=== PATIENT | male | born 1935 | race Caucasian/White ===

== ENCOUNTER 2019-03-11 07:44 | Observation (INO) | payer MEDICARE, BC ==
[2019-03-11] MEDS ORDERED: Aspirin 81 MG Tab.Chew PO ONE (07:57)
[2019-03-11 08:14] LABS: CHLORIDE,CL 104 mEq/L (98-106); SODIUM,NA 142 mEq/L (136-145)
--- NOTE | 2019-03-11 08:45 | EDM.PDOC ---
ED HPI GENERAL MEDICAL PROBLEM - General Chief Complaint: General Stated Complaint: dizzy Time Seen by Provider: 03/11/19 08:17 Source of Information: Reports: Patient History Limitations: Reports: No Limitations - History of Present Illness INITIAL COMMENTS - FREE TEXT/NARRATIVE: Deshaun is a pleasant 83 year old male who presents to the ED via wheelchair with his son with c/o difficulty walking, dizziness, and sweatiness. He reports that last night around 0230 he woke up and was dizzy and had a hard time walking. He reports he was also clammy at this time. Reports he then went back to sleep and woke up again around 0630 [address] was feeling the same way. He reports normally he has no trouble with ambulation. Does report since this time he has had a bilateral frontal headache, rated 5/10. He reports he has not had any chest pain or shortness of breath. Denies any recent illness. Denies any fever, chills, decreased appetite, cough, abdominal pain, urinary symptoms, N/V/D. He reports when he went to sleep last night he was feeling well. Onset: Today Onset Date: 03/11/19 Onset Time: 02:30 Duration: Intermittent Location: Reports: Head Quality: Reports: Ache Severity: Moderate Improves with: Reports: None Worsens with: Reports: None Associated Symptoms: Reports: Diaphoresis, Headaches, Weakness. Denies: Confusion, Chest Pain, Cough, cough w sputum, Fever/Chills, Loss of Appetite, Malaise, Nausea/Vomiting, Rash, Seizure, Shortness of Breath, Syncope Headache Pain Score (Numeric/FACES): 2 - Related Data Allergies Allergy/AdvReac Type Severity Reaction Status Date / Time acetaminophen Allergy Cannot Verified 03/11/19 07:46 [From Tylenol-Codeine #3] Remember amoxicillin [Amoxicillin] Allergy Stomach Verified 03/11/19 07:46 Upset cefuroxime axetil Allergy Joint Pain Verified 03/11/19 07:46 [From Ceftin] codeine phosphate Allergy Cannot Verified 03/11/19 07:46 [From Tylenol-Codeine #3] Remember levofloxacin [From Levaquin] Allergy Stomach Verified 03/11/19 07:46 Upset Home Meds: Home Meds Aspirin [Halfprin] 81 mg PO DAILY 12/09/13 [History] Atenolol/Chlorthalidone [Atenolol-Chlorthalidone 50-25] 0.5 tab PO DAILY [History] Calcium Carbonate [Calcium] 1,200 mg PO DAILY 12/09/13 [History] Cholecalciferol (Vitamin D3) [Vitamin D-3] 2,000 unit PO DAILY 12/09/13 [History ] Simvastatin [Zocor] 20 mg PO DAILY 12/09/13 [History] Ubidecarenone [Co Q-10] 100 mg PO DAILY 12/09/13 [History] Cyanocobalamin (Vitamin B-12) [Vitamin B-12] 250 mcg PO DAILY 03/11/19 [History] Pantoprazole Sodium 40 mg PO DAILY 03/11/19 [History] Potassium Chloride 10 meq PO DAILY 03/11/19 [History] amLODIPine Besylate [Amlodipine Besylate] 5 mg PO DAILY 03/11/19 [History] Past Medical History HEENT History: Reports: Cataract Cardiovascular History: Reports: Hypertension Oncologic (Cancer) History: Reports: Prostate - Past Surgical History HEENT Surgical History: Reports: Cataract Surgery Social & Family History - Family History Family Medical History: Noncontributory - Tobacco Use Smoking Status *Q: Never Smoker - Caffeine Use Caffeine Use: Reports: Soda - Recreational Drug Use Recreational Drug Use: No ED ROS GENERAL - Review of Systems Review Of Systems: ROS reveals no pertinent complaints other than HPI. ED EXAM, GENERAL - Physical Exam Exam: See Below Exam Limited By: No Limitations General Appearance: Alert, WD/WN, No Apparent Distress Eye Exam: Bilateral Eye: EOMI, Normal Fundi, Normal Inspection, PERRL Ears: Normal External Exam, Normal Canal, Hearing Grossly Normal, Normal TMs Nose: Normal Inspection, Normal Mucosa, No Blood Throat/Mouth: Normal Inspection, Normal Lips, Normal Teeth, Normal Gums, Normal Oropharynx, Normal Voice, No Airway Compromise Head: Atraumatic, Normocephalic Neck: Normal Inspection, Supple, Non-Tender, Full Range of Motion Respiratory/Chest: No Respiratory Distress, Lungs Clear, Normal Breath Sounds, No Accessory Muscle Use, Chest Non-Tender Cardiovascular: Normal Peripheral Pulses, Regular Rate, Rhythm, No Edema, No Murmur, Extra Beats (ocassional PVC) GI/Abdominal: Normal Bowel Sounds, Soft, Non-Tender, No Organomegaly, No Distention, No Abnormal Bruit, No Mass Back Exam: Normal Inspection, Full Range of Motion, NT Extremities: Normal Inspection, Normal Range of Motion, Non-Tender, Normal Capillary Refill, No Pedal Edema Neurological: Alert, Oriented, CN II-XII Intact, Normal Cognition, Normal Gait, Normal Reflexes, No Motor/Sensory Deficits Psychiatric: Normal Affect, Normal Mood Skin Exam: Warm, Dry, Intact, Normal Color, No Rash Lymphatic: No Adenopathy Course - Vital Signs Last Recorded V/S: Last Vital Signs Temp 99.3 F 03/11/19 10:43 Pulse 71 03/11/19 10:43 Resp 16 03/11/19 10:43 BP 139/72 03/11/19 10:43 Pulse Ox 98 03/11/19 10:43 - Orders/Labs/Meds Orders: Active Orders 24 hr Category Date Time Status Chest 2V [CR] Stat Exams 03/11/19 07:48 Taken Head wo Cont [CT] Stat Exams 03/11/19 08:24 Taken Medication Orders Aspirin (Halfprin) 81 mg PO DAILY [facility] Last Admin: 03/11/19 10:53 Dose: Enoxaparin Sodium (Lovenox) 40 mg SUBCUT Q24H [facility] Last Admin: 03/11/19 11:59 Dose: 40 mg Potassium Chloride/Sodium Chloride (Normal Saline With 20 Meq Kcl) 1,000 mls @ 100 mls/hr IV ASDIRECTED [facility] Stop: 03/11/19 20:10 Last Admin: 03/11/19 10:40 Dose: 100 mls/hr Own[facility] Amlodipine Besylate 5 Mg 5 mg PO BEDTIME [facility] Atenolol- Chlorthalidone 50-25 Mg Tab 0.5 tab PO BEDTIME [facility] Calcium Carbonate 1,200 Mg Tab 1,200 mg PO BEDTIME [facility] Ubidecarenone [Co Q- 10] 100 Mg Cap 100 mg PO BEDTIME [facility] Pantoprazole Sodium (Protonix) 40 mg PO BEDTIME [facility] Potassium Chloride (Klor-Con 10) 40 meq PO BIDMEALS [facility] Simvastatin (Zocor) 20 mg PO BEDTIME [facility] Labs: Laboratory Tests 03/11/19 03/11/19 03/11/19 Range/Units 07:47 07:47 07:47 WBC 6.8 (5.0-10.0) 10^3/uL RBC 5.38 (4.50-6.00) 10^6/uL Hgb 16.4 (14.0-18.0) g/dL Hct 46.6 (40.0-54.0) % MCV 86.6 (82.0-94.0) fL MCH 30.5 (27.0-32.0) pg MCHC 35.2 (33.0-38.0) g/dL RDW Coeff of Sabino 13.3 (11.0-15.0) % Plt Count 194 (150-400) 10^3/uL Neut % (Auto) 49.1 (35-85) % Lymph % (Auto) 32.5 (10-55) % [place] % (Auto) 12.1 (0-16) % Eos % (Auto) 5.3 H (0-5) % Baso % (Auto) 1.0 (0-3) % Neut # (Auto) 3.32 (1.80-7.00) 10^3/uL Lymph # (Auto) 2.20 (1.00-4.80) 10^3/uL [place] # (Auto) 0.82 H (0.00-0.80) 10^3/uL Eos # (Auto) 0.36 (0.00-0.45) 10^3/uL Baso # (Auto) 0.07 10^3/uL PT 10.5 (9.7-12.3) SEC INR 1.02 (0.92-1.18) APTT 24.3 (23.2-32.3) SEC Sodium 142 (136-145) mEq/L Potassium 3.2 L (3.5-5.0) mEq/L Chloride 104 (98-106) mEq/L Carbon Dioxide 30 (21-32) mmol/L BUN 13 (7-18) mg/dL Creatinine 1.0 (0.7-1.3) mg/dL Est Cr Clr Drug Dosing 50.51 mL/min Estimated GFR (MDRD) > 60 (>=60) mL/min Glucose 106 H (75-99) mg/dL Calcium 9.1 (8.4-10.1) mg/dL Lactate Dehydrogenase 109 (100-190) U/L Creatine Kinase 110 (35-232) U/L Troponin I < 0.017 (0.00-0.06) ng/mL Meds: Medications Generic Name Dose Route Start Last Admin Trade Name Adriana PRN Reason Stop Dose Admin Aspirin 81 mg 03/11/19 10:15 03/11/19 10:53 Halfprin PO Not Given DAILY [facility] Enoxaparin Sodium 40 mg 03/11/19 12:00 03/11/19 11:59 Lovenox SUBCUT 40 mg Q24H [facility] Administration Potassium Chloride/Sodium Chloride 1,000 mls @ 100 mls/hr 03/11/19 10:11 10:40 Normal Saline With 20 Meq Kcl IV 03/11/19 20:10 100 mls/hr ASDIRECTED [facility] Administration Ownmed 5 mg 03/11/19 20:00 Amlodipine Besylate PO 5 Mg BEDTIME [facility] Atenolol- 0.5 tab 03/11/19 20:00 Chlorthalidone 50-25 PO Mg Tab BEDTIME [facility] Calcium 1,200 mg 03/11/19 20:00 Carbonate 1,200 Mg PO Tab BEDTIME [facility] Ownmed 100 mg 03/11/19 20:00 Ubidecarenone [Co Q- PO 10] 100 Mg Cap BEDTIME [facility] Pantoprazole Sodium 40 mg 03/11/19 20:00 Protonix PO BEDTIME [facility] Potassium Chloride 40 meq 03/11/19 17:30 Klor-Con 10 PO BIDMEALS [facility] Simvastatin 20 mg 03/11/19 20:00 Zocor PO BEDTIME [facility] Discontinued Medications Generic Name Dose Route Start Last Admin Trade Name Adriana PRN Reason Stop Dose Admin Aspirin 324 mg 03/11/19 07:57 03/11/19 07:57 Aspirin PO 03/11/19 07:58 324 mg ONETIME ONE Administration Potassium Chloride 40 meq 03/11/19 08:47 03/11/19 09:13 Klor-Con 10 PO 03/11/19 08:48 40 meq ONETIME ONE Administration - Re-Assessments/Exams Free Text/Narrative Re-Assessment/Exam: Discussed lab, EKG, CXR, and CT results with patient and son. Labs indicate hypokalemia with K of 3.2, but otherwise stable. EKG shows SR with frequent PVCs. Telemetry shows frequent PVCs as well. Discussed that low potassium could potentially worsen these. Patient is on low dose atenolol currently. 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 Chest xray negative for acute findings. Recommend overnight observation stay for telemetry. Will replace potassium. Recheck labs tomorrow morning. Departure - Departure Time of Disposition: 09:37 Disposition: Refer to Observation Condition: Good Clinical Impression: Hypokalemia, Frequent PVCs, Weakness - Discharge Information *PRESCRIPTION DRUG MONITORING PROGRAM REVIEWED*: Not Applicable *COPY OF PRESCRIPTION DRUG MONITORING REPORT IN PATIENT JEROD: Not Applicable - Problem List & Annotations (1) Frequent PVCs SNOMED Code(s): 61322216 Code(s): I49.3 - VENTRICULAR PREMATURE DEPOLARIZATION Status: Acute Current Visit: Yes (2) Hypokalemia SNOMED Code(s): 41869214 Code(s): E87.6 - HYPOKALEMIA Status: Acute Current Visit: Yes (3) Weakness SNOMED Code(s): 81706084 Code(s): R53.1 - WEAKNESS Status: Acute Current Visit: Yes - Problem List Review Problem List Initiated/Reviewed/Updated: Yes - My Orders Last 24 Hours: My Active Orders 03/11/19 07:48 Chest 2V [CR] Stat 03/11/19 08:24 Head wo Cont [CT] Stat - Assessment/Plan Admission H&P: Please use this note as an admission H&P Last 24 Hours: My Active Orders 03/11/19 07:48 Chest 2V [CR] Stat 03/11/19 08:24 Head wo Cont [CT] Stat Assessment:: Hypokalemia Frequent PVCs Weakness Plan: Patient will be admitted to observation with continuous telemetry. Will replace potassium. Recheck labs tomorrow morning. Referral to PT for strengthening
[2019-03-11] MEDS ORDERED: Potassium Chloride 10 MEQ Tab.ER PO ONE (08:47)
[2019-03-11] MEDS: NS + KCl 20mEq/L 1,000 ML IV SCH ×2 (10:40→19:36)
[2019-03-11] MEDS: Aspirin 81 MG Tab.EC PO SCH (10:53)
[2019-03-11] MEDS: Enoxaparin 40 MG/0.4 ML Syringe SUBCUT SCH (11:59)
[2019-03-11] MEDS ORDERED: POTASSIUM CHLORIDE 10 MEQ PO SCH (17:30)
[2019-03-11] MEDS: POTASSIUM CHLORIDE 10 MEQ PO SCH (19:37)
[2019-03-11] MEDS ORDERED: NS + KCl 20mEq/L 1,000 ML IV ONE (19:56)
[2019-03-11] MEDS ORDERED: UBIDECARENONE 100 MG PO SCH (20:00)
[2019-03-11] MEDS ORDERED: AMLODIPINE BESYLATE 5 MG PO SCH (20:00)
[2019-03-11] MEDS ORDERED: Calcium Carbonate 500 MG Tab.Chew PO SCH (20:00)
[2019-03-11] MEDS ORDERED: ATENOLOL PO SCH (20:00)
[2019-03-11] MEDS ORDERED: CHLORTHALIDONE PO SCH (20:00)
[2019-03-11] MEDS ORDERED: SIMVASTATIN 20 MG PO SCH (20:00)
[2019-03-12 07:18] LABS: CHLORIDE,CL 108 mEq/L (98-106); SODIUM,NA 143 mEq/L (136-145)
[2019-03-12] MEDS: Aspirin 81 MG Tab.EC PO SCH (07:42)
[2019-03-12] MEDS: POTASSIUM CHLORIDE 10 MEQ PO SCH (07:42)
[2019-03-12] MEDS ORDERED: Pantoprazole 40 MG Tab.CR PO SCH (08:00)
[2019-03-12 09:27] VITALS: BP 142/70; PULSE 63
--- NOTE | 2019-03-12 11:05 | PCM.DCSUM1 ---
Discharge Summary - Hospital Course Free Text/Narrative:: in with sinus congestion and dizziness yesterday, found to have a low K+, was given IVF and K+ replacement, feels much better, no dizziness now, still c/o some sinus congestion Diagnosis: Stroke: No Modified Gray Scale: No Symptoms at All Modified Gray Scale Score: 0 - Discharge Data Discharge Date: 03/12/19 Discharge Disposition: Home, Self-Care 01 Condition: Stable - Referral to Home Health Primary Care Physician: Mando Renteria MD - Discharge Diagnosis/Problem(s) (1) Hypokalemia SNOMED Code(s): 77189966 ICD Code: E87.6 - HYPOKALEMIA Status: Acute Priority: Low Current Visit : Yes - Patient Summary/Data Consults: Consultations 03/11/19 10:11 PT Evaluation and Treatment [CONS] Routine Recommended Follow-up Testing/Procedures: follow up with PCP this week, call thursday for an appointment time Hospital Course: was given IVF and K+ replacement, feels much better, still has sinus congestin and pressure which I suspect contributed to his dizziness, will dx home with prednisone 50mg 1 x a day for 5 days - Patient Instructions Diet: Heart Healthy Diet Driving: May Drive Today Showering/Bathing: May Shower Notify Provider of: Fever, Nausea and/or Vomiting Other/Special Instructions: rest. increase fluids. follow up with your family doctor this week, call thursday for an appointment time. return to the ED sooner if worse or problems. prednisone 50mg 1 x a day for 5 days - Discharge Plan *PRESCRIPTION DRUG MONITORING PROGRAM REVIEWED*: Not Applicable *COPY OF PRESCRIPTION DRUG MONITORING REPORT IN PATIENT JEROD: Not Applicable Home Medications: Home Meds Aspirin [Halfprin] 81 mg PO DAILY 12/09/13 [History] Atenolol/Chlorthalidone [Atenolol-Chlorthalidone 50-25] 0.5 tab PO DAILY [History] Calcium Carbonate [Calcium] 1,200 mg PO DAILY 12/09/13 [History] Cholecalciferol (Vitamin D3) [Vitamin D3] 2,000 unit PO DAILY 12/09/13 [History] Simvastatin [Zocor] 20 mg PO DAILY 12/09/13 [History] Ubidecarenone [Co Q-10] 100 mg PO DAILY 06/13/14 [History] Cyanocobalamin (Vitamin B-12) [Vitamin B-12] 250 mcg PO DAILY 03/11/19 [History] Potassium Chloride 10 meq PO DAILY 03/11/19 [History] amLODIPine Besylate [Amlodipine Besylate] 5 mg PO DAILY 03/11/19 [History] Oxygen Therapy Mode: Room Air Forms: ED Department Discharge Referrals: Mando Renteria MD [Primary Care Provider] - - Discharge Summary/Plan Comment DC Time >30 min.: No Discharge Summary/Plan Comment: see DC instructions prednisone 50mg 1 x a day for 5 days - Patient Data Vitals - Most Recent: Last Vital Signs Temp 37.7 C 03/12/19 08:00 Pulse 63 03/12/19 08:00 Resp 18 03/12/19 08:00 BP 142/70 H 03/12/19 08:00 Pulse Ox 97 03/12/19 08:00 Weight - Most Recent: 78.245 kg I&O - Last 24 hours: Intake & Output 03/11/19 03/12/19 03/12/19 22:59 06:59 14:59 Intake Total 893 Balance 893 Lab Results - Last 24 hrs: Laboratory Results - last 24 hr 03/12/19 03/12/19 Range/Units 06:50 06:50 WBC 6.5 (5.0-10.0) 10^3/uL RBC 4.90 (4.50-6.00) 10^6/uL Hgb 15.0 (14.0-18.0) g/dL Hct 43.4 (40.0-54.0) % MCV 88.6 (82.0-94.0) fL MCH 30.6 (27.0-32.0) pg MCHC 34.6 (33.0-38.0) g/dL RDW Coeff of Sabino 13.5 (11.0-15.0) % Plt Count 181 (150-400) 10^3/uL Neut % (Auto) 53.2 (35-85) % Lymph % (Auto) 27.6 (10-55) % [place] % (Auto) 14.1 (0-16) % Eos % (Auto) 4.2 (0-5) % Baso % (Auto) 0.9 (0-3) % Neut # (Auto) 3.44 (1.80-7.00) 10^3/uL Lymph # (Auto) 1.78 (1.00-4.80) 10^3/uL [place] # (Auto) 0.91 H (0.00-0.80) 10^3/uL Eos # (Auto) 0.27 (0.00-0.45) 10^3/uL Baso # (Auto) 0.06 10^3/uL Sodium 143 (136-145) mEq/L Potassium 3.8 (3.5-5.0) mEq/L Chloride 108 H (98-106) mEq/L Carbon Dioxide 29 (21-32) mmol/L BUN 12 (7-18) mg/dL Creatinine 1.0 (0.7-1.3) mg/dL Est Cr Clr Drug Dosing 50.51 mL/min Estimated GFR (MDRD) > 60 (>=60) mL/min Glucose 89 (75-99) mg/dL Calcium 8.9 (8.4-10.1) mg/dL Med Orders - Current: Current Medications Aspirin (Halfprin) 81 mg PO DAILY [facility] Last Admin: 03/12/19 07:42 Dose: 81 mg Calcium Carbonate/Glycine (Tums) 1,000 mg PO BEDTIME [facility] Last Admin: 03/11/19 19:42 Dose: 1,000 mg Enoxaparin Sodium (Lovenox) 40 mg SUBCUT Q24H [facility] Last Admin: 03/11/19 11:59 Dose: 40 mg Own[facility] Amlodipine Besylate 5 Mg 5 mg PO BEDTIME [facility] Last Admin: 03/11/19 19:36 Dose: 5 mg Ownmed Atenolol- Chlorthalidone 50-25 Mg Tab 0.5 tab PO BEDTIME [facility] Last Admin: 03/11/19 19:38 Dose: 0.5 tab [facility] Ubidecarenone [Co Q- 10] 100 Mg Cap 100 mg PO BEDTIME [facility] Last Admin: 03/11/19 19:38 Dose: 100 mg Pantoprazole Sodium (Protonix) 40 mg PO DAILY [facility] Last Admin: 03/12/19 07:46 Dose: 40 mg Potassium Chloride (Klor-Con 10) 10 meq PO BID [facility] Last Admin: 03/12/19 07:42 Dose: 10 meq Simvastatin (Zocor) 20 mg PO BEDTIME [facility] Last Admin: 03/11/19 19:37 Dose: 20 mg Discontinued Medications Aspirin (Aspirin) 324 mg PO ONETIME ONE Stop: 03/11/19 07:58 Last Admin: 03/11/19 07:57 Dose: 324 mg Potassium Chloride/Sodium Chloride (Normal Saline With 20 Meq Kcl) 1,000 mls @ 100 mls/hr IV ASDIRECTED [facility] Stop: 03/11/19 20:10 Last Admin: 03/11/19 19:36 Dose: 100 mls/hr Potassium Chloride/Sodium Chloride (Normal Saline With 20 Meq Kcl) 1,000 mls @ 80 mls/hr IV ONETIME ONE Stop: 03/12/19 08:25 Last Admin: 03/11/19 20:05 Dose: 80 mls/hr Potassium Chloride (Klor-Con 10) 40 meq PO ONETIME ONE Stop: 03/11/19 08:48 Last Admin: 03/11/19 09:13 Dose: 40 meq Potassium Chloride (Klor-Con 10) 40 meq PO BIDWAALS [facility]
[2019-03-12] MEDS: Enoxaparin 40 MG/0.4 ML Syringe SUBCUT SCH (11:43)
== END 2019-03-12 11:08 | disposition home or self-care (01) ==
LOC: CC.ED 07:44 → UNDOADMOB 09:49 → CC.MS 09:49
PROVIDERS: ADMIT Nurse Practitioner Family; ATTEND Family Medicine
DX: E87.6 Hypokalemia (principal); I49.3 Ventricular premature depolarization; I10 Essential (primary) hypertension; Z88.0 Allergy status to penicillin; Z88.1 Allergy status to other antibiotic agents; Z88.5 Allergy status to narcotic agent; Z79.82 Long term (current) use of aspirin; Z79.899 Other long term (current) drug therapy
CPT/HCPCS: 36415; 70450; 71046; 80048; 81001; 82550; 83615; 84484; 85025; 85610; 85730; 93005; 97161; 99285; A9270; J1650; J3480; 96365; 96366; 96372; 96376; G0378

== ENCOUNTER 2019-03-17 01:53 | Emergency (ER) | payer MEDICARE, BC ==
[2019-03-17 02:02] VITALS: PULSE 63
[2019-03-17 02:19] VITALS: BP 153/82
--- NOTE | 2019-03-17 02:50 | EDM.PDOC ---
ED HPI GENERAL MEDICAL PROBLEM - General Chief Complaint: General Stated Complaint: headache and no balance Time Seen by Provider: 03/17/19 02:29 Source of Information: Reports: Patient History Limitations: Reports: No Limitations - History of Present Illness INITIAL COMMENTS - FREE TEXT/NARRATIVE: Patient presents to ER with balance issues and a headache. States the same thing happened last week x2 and was also seen in the ER. Potassium was mildly low, had frequent PVCs noted on monitor. Was admitted for observation and discharged home the next day. He again complains of a frontal headache. [place] his balance was off at home when he awoke to go to the bathroom just like it was last week. Had a CT scan at that visit which was normal. He denies feeling lightheaded, just felt unsteady. No chest pain. Does get mildly short of breath. No nausea, vomiting. No diarrhea. Denies urinary complaints. Review of the chart shows potassium on presentation last week was 3.2. Was given replacement and by the next day, was normal at 3.8. Has been taking prednisone daily for sinus congestion, has last dose tomorrow. Was due to have his potassium checked today but was worried due to the balance concern. Nurse reports that when getting him up to the bathroom, ambulating went well. States he felt unsteady. Onset: Today, Sudden Duration: Minutes:, Improving Location: Reports: Head Quality: Reports: Dull Severity: Mild Improves with: Reports: Rest Worsens with: Reports: Movement Associated Symptoms: Reports: Shortness of Breath. Denies: Confusion, Chest Pain, Cough, Fever/Chills, Nausea/Vomiting, Syncope, Weakness Headache Pain Score (Numeric/FACES): 6 - Related Data Allergies Allergy/AdvReac Type Severity Reaction Status Date / Time acetaminophen Allergy Cannot Verified 03/17/19 02:02 [From Tylenol-Codeine #3] Remember amoxicillin [Amoxicillin] Allergy Stomach Verified 03/17/19 02:02 Upset cefuroxime axetil Allergy Joint Pain Verified 03/17/19 02:02 [From Ceftin] codeine phosphate Allergy Cannot Verified 03/17/19 02:02 [From Tylenol-Codeine #3] Remember levofloxacin [From Levaquin] Allergy Stomach Verified 03/17/19 02:02 Upset Home Meds: Home Meds Aspirin [Halfprin] 81 mg PO DAILY 12/09/13 [History] Atenolol/Chlorthalidone [Atenolol-Chlorthalidone 50-25] 0.5 tab PO DAILY [History] Calcium Carbonate [Calcium] 1,200 mg PO DAILY 12/09/13 [History] Cholecalciferol (Vitamin D3) [Vitamin D3] 2,000 unit PO DAILY 12/09/13 [History] Simvastatin [Zocor] 20 mg PO DAILY 12/09/13 [History] Ubidecarenone [Co Q-10] 100 mg PO DAILY 12/09/13 [History] Cyanocobalamin (Vitamin B-12) [Vitamin B-12] 250 mcg PO DAILY 03/11/19 [History] Potassium Chloride 10 meq PO DAILY 03/11/19 [History] amLODIPine Besylate [Amlodipine Besylate] 5 mg PO DAILY 03/11/19 [History] Past Medical History HEENT History: Reports: Cataract Cardiovascular History: Reports: Hypertension Oncologic (Cancer) History: Reports: Prostate - Past Surgical History HEENT Surgical History: Reports: Cataract Surgery Social & Family History - Family History Family Medical History: Noncontributory - Tobacco Use Smoking Status *Q: Never Smoker - Caffeine Use Caffeine Use: Reports: Soda ED ROS GENERAL - Review of Systems Review Of Systems: See Below Constitutional: Reports: Weakness. Denies: Fever, Chills, Malaise, Decreased Appetite HEENT: Reports: Sinus Problem. Denies: Ear Pain Respiratory: Reports: Shortness of Breath Cardiovascular: Denies: Chest Pain, Edema, Lightheadedness Endocrine: Denies: Fatigue GI/Abdominal: Denies: Abdominal Pain, Constipation, Diarrhea, Nausea, Vomiting : Reports: No Symptoms Musculoskeletal: Reports: No Symptoms Skin: Reports: No Symptoms Neurological: Reports: Dizziness, Headache, Weakness ED EXAM, GENERAL - Physical Exam Exam: See Below Exam Limited By: No Limitations General Appearance: Alert, WD/WN, No Apparent Distress Eye Exam: Bilateral Eye: EOMI, PERRL Ears: Normal External Exam, Normal TMs Nose: Normal Inspection, Normal Mucosa, No Blood Throat/Mouth: Normal Inspection, Normal Oropharynx Head: Normocephalic Neck: Normal Inspection, Supple, Non-Tender Respiratory/Chest: No Respiratory Distress, Lungs Clear, Normal Breath Sounds Cardiovascular: Regular Rate, Rhythm, No Edema GI/Abdominal: Normal Bowel Sounds, Soft, Non-Tender Extremities: Normal Inspection, No Pedal Edema Neurological: Alert, Oriented Skin Exam: Warm, Dry Course - Vital Signs Last Recorded V/S: Last Vital Signs Temp 98.2 F 03/17/19 01:59 Pulse 63 03/17/19 02:18 Resp 20 03/17/19 01:59 BP 153/82 H 03/17/19 02:18 Pulse Ox 96 03/17/19 02:10 - Orders/Labs/Meds Labs: Laboratory Tests 03/17/19 03/17/19 03/17/19 Range/Units 02:14 02:14 02:16 WBC 12.1 H (5.0-10.0) 10^3/uL RBC 5.50 (4.50-6.00) 10^6/uL Hgb 16.9 (14.0-18.0) g/dL Hct 46.8 (40.0-54.0) % MCV 85.1 (82.0-94.0) fL MCH 30.7 (27.0-32.0) pg MCHC 36.1 (33.0-38.0) g/dL RDW Coeff of Sabino 12.8 (11.0-15.0) % Plt Count 233 (150-400) 10^3/uL Neut % (Auto) 71.0 (35-85) % Lymph % (Auto) 16.6 (10-55) % [place] % (Auto) 12.3 (0-16) % Eos % (Auto) 0 (0-5) % Baso % (Auto) 0.1 (0-3) % Neut # (Auto) 8.59 H (1.80-7.00) 10^3/uL Lymph # (Auto) 2.00 (1.00-4.80) 10^3/uL [place] # (Auto) 1.48 H (0.00-0.80) 10^3/uL Eos # (Auto) 0.00 (0.00-0.45) 10^3/uL Baso # (Auto) 0.01 10^3/uL Sodium 140 (136-145) mEq/L Potassium 3.5 (3.5-5.0) mEq/L Chloride 101 (98-106) mEq/L Carbon Dioxide 29 (21-32) mmol/L BUN 18 (7-18) mg/dL Creatinine 1.0 (0.7-1.3) mg/dL Est Cr Clr Drug Dosing 54.15 mL/min Estimated GFR (MDRD) > 60 (>=60) mL/min Glucose 108 H (75-99) mg/dL Calcium 9.3 (8.4-10.1) mg/dL Magnesium 2.0 (1.8-2.4) mg/dL Total Bilirubin 0.7 (0.0-1.0) mg/dL AST 19 (15-37) U/L ALT 23 (12-78) U/L Alkaline Phosphatase 79 (46-116) U/L Troponin I < 0.017 (0.00-0.06) ng/mL Total Protein 6.7 (6.4-8.2) g/dL Albumin 3.6 (3.4-5.0) g/dL Urine Color Yellow (YELLOW) Urine Appearance Clear (CLEAR) Urine pH 5.5 (4.5-8.0) Ur Specific [place] 1.020 (1.003-1.020) Urine Protein Negative (NEGATIVE) mg/dL Urine Glucose (UA) Negative (NEGATIVE) mg/dL Urine Ketones Negative (NEGATIVE) mg/dL Urine Occult Blood Trace-intact H (NEGATIVE) Urine Nitrite Negative (NEGATIVE) Urine Bilirubin Negative (NEGATIVE) Urine Urobilinogen 0.2 (0.2-1.0) EU/dL Ur Leukocyte Esterase Negative (NEGATIVE) Urine RBC 0-5 (0-5) /HPF Urine WBC Not seen (0-5) /HPF Ur Squamous Epith Cells Occasional H (NOT SEEN) /HPF Urine Bacteria Occasional H (NOT SEEN) /HPF - Re-Assessments/Exams Free Text/Narrative Re-Assessment/Exam: 03/17 Labs reviewed, all negative. Telemetry shows sinus rhythm, occasional PVC. Up and ambulating in ER, does feel more steady. Orthostatic blood pressures checked, stable. Feels overall better. Does have appointment with Dr. Renteria later today, will have him keep scheduled appointment, consider MRI if balance concerns persist. Son lives with patient and is comfortable with that. Departure - Departure Time of Disposition: 03:04 Disposition: Home, Self-Care 01 Condition: Fair Clinical Impression: Weakness - Discharge Information *PRESCRIPTION DRUG MONITORING PROGRAM REVIEWED*: No *COPY OF PRESCRIPTION DRUG MONITORING REPORT IN PATIENT JEROD: No Referrals: PCP,None [Primary Care Provider] - Forms: ED Department Discharge Additional Instructions: 1. Rest 2. Slow cautious movements 3. Meds as directed 4. Return to see Dr. Renteria this am as scheduled
[2019-03-17 02:58] LABS: CHLORIDE,CL 101 mEq/L (98-106); SODIUM,NA 140 mEq/L (136-145)
== END 2019-03-17 03:07 | disposition home or self-care (01) ==
LOC: CC.ED 01:53
DX: R53.1 Weakness (principal); I10 Essential (primary) hypertension; Z79.82 Long term (current) use of aspirin; Z79.899 Other long term (current) drug therapy; Z88.1 Allergy status to other antibiotic agents; Z88.5 Allergy status to narcotic agent
CPT/HCPCS: 36415; 80053; 81001; 83735; 84484; 85025; 99283

== ENCOUNTER 2019-03-25 10:55 | Observation (INO) | payer MEDICARE, BC ==
[2019-03-25 11:34] LABS: CHLORIDE,CL 98 mEq/L (98-106); SODIUM,NA 136 mEq/L (136-145)
[2019-03-25] MEDS ORDERED: Sodium Chloride 0.9% 10 ML Syringe FLUSH PRN (13:38)
[2019-03-25] MEDS ORDERED: Enoxaparin 40 MG/0.4 ML Syringe SUBCUT SCH (16:00)
[2019-03-25] MEDS ORDERED: Acetaminophen 325 MG Tab PO PRN (16:06)
--- NOTE | 2019-03-25 17:58 | EDM.PDOC ---
ED HPI GENERAL MEDICAL PROBLEM - General Chief Complaint: General Stated Complaint: dizzy Time Seen by Provider: 03/25/19 11:02 Source of Information: Reports: Patient, RN History Limitations: Reports: No Limitations - History of Present Illness INITIAL COMMENTS - FREE TEXT/NARRATIVE: Deshaun is an 83 yo who presents to the ED via wheelchair with complaints of feeling dizzy and shaky. He states he was in the waiting room after a carotid ultrasound waiting to have an MRI of his head. States that he got up to use the bathroom and got dizzy. Denies chest pain and nausea, but does report having a headache that he rates 8/10. Was recently in the hospital for this dizziness and headache. Denies symptoms being any worse from prior hospitalization. States he has been weak as well. Denies any chest pain or palpitations. Headache Pain Score (Numeric/FACES): 8 - Related Data Allergies Allergy/AdvReac Type Severity Reaction Status Date / Time acetaminophen Allergy Cannot Verified 03/25/19 11:08 [From Tylenol-Codeine #3] Remember amoxicillin [Amoxicillin] Allergy Stomach Verified 03/25/19 11:08 Upset cefuroxime axetil Allergy Joint Pain Verified 03/25/19 11:08 [From Ceftin] codeine phosphate Allergy Cannot Verified 03/25/19 11:08 [From Tylenol-Codeine #3] Remember levofloxacin [From Levaquin] Allergy Stomach Verified 03/25/19 11:08 Upset Home Meds: Home Meds Aspirin [Halfprin] 81 mg PO DAILY 12/09/13 [History] Atenolol/Chlorthalidone [Atenolol-Chlorthalidone 50-25] 0.5 tab PO DAILY [History] Calcium Carbonate [Calcium] 1,200 mg PO DAILY 12/09/13 [History] Cholecalciferol (Vitamin D3) [Vitamin D3] 2,000 unit PO DAILY 12/09/13 [History] Simvastatin [Zocor] 20 mg PO DAILY 12/09/13 [History] Ubidecarenone [Co Q-10] 100 mg PO DAILY 12/09/13 [History] Cyanocobalamin (Vitamin B-12) [Vitamin B-12] 250 mcg PO DAILY 03/11/19 [History] Potassium Chloride 10 meq PO DAILY 03/11/19 [History] amLODIPine Besylate [Amlodipine Besylate] 5 mg PO DAILY 03/11/19 [History] Past Medical History HEENT History: Reports: Cataract Cardiovascular History: Reports: Hypertension Oncologic (Cancer) History: Reports: Prostate - Past Surgical History HEENT Surgical History: Reports: Cataract Surgery Social & Family History - Family History Family Medical History: Noncontributory - Tobacco Use Smoking Status *Q: Never Smoker - Caffeine Use Caffeine Use: Reports: Coffee - Recreational Drug Use Recreational Drug Use: No ED ROS GENERAL - Review of Systems Review Of Systems: ROS reveals no pertinent complaints other than HPI. Constitutional: Reports: Weakness. Denies: Fever, Chills, Decreased Appetite HEENT: Reports: No Symptoms. Denies: Vision Change Respiratory: Denies: Shortness of Breath, Wheezing, Cough Cardiovascular: Reports: Lightheadedness. Denies: Chest Pain, Palpitations Endocrine: Reports: No Symptoms GI/Abdominal: Reports: No Symptoms : Reports: No Symptoms Musculoskeletal: Reports: No Symptoms Skin: Reports: No Symptoms Neurological: Reports: Dizziness, Headache, Pre-Existing Deficit, Difficulty Walking, Weakness ED EXAM, GENERAL - Physical Exam Exam: See Below Exam Limited By: No Limitations General Appearance: Alert, No Apparent Distress Eye Exam: Bilateral Eye: EOMI, PERRL Ears: Normal External Exam, Normal Canal, Hearing Grossly Normal, Normal TMs Nose: Normal Inspection, Normal Mucosa, No Blood Throat/Mouth: Normal Inspection, Normal Lips, Normal Gums, Normal Oropharynx, Normal Voice, No Airway Compromise Head: Atraumatic, Normocephalic Neck: Normal Inspection, Supple, Non-Tender Respiratory/Chest: No Respiratory Distress, Lungs Clear, Normal Breath Sounds, No Accessory Muscle Use Cardiovascular: No Edema, No Murmur, Bradycardia GI/Abdominal: Normal Bowel Sounds, Soft, Non-Tender, No Organomegaly, No Distention Extremities: Normal Inspection, Non-Tender Neurological: Alert, Oriented, CN II-XII Intact, Normal Cognition Psychiatric: Normal Affect, Normal Mood EKG INTERPRETATION EKG Date: 03/25/19 Rhythm: Other (Ventricular Trigeminy) Comparison: Change From Previous EKG Course - Vital Signs Last Recorded V/S: Last Vital Signs Temp 99.2 F 03/25/19 16:00 Pulse 53 L 03/25/19 16:00 Resp 16 03/25/19 16:00 BP 139/57 L 03/25/19 16:00 Pulse Ox 99 03/25/19 16:00 - Orders/Labs/Meds Orders: Medication Orders Acetaminophen (Tylenol) 650 mg PO Q6H PRN PRN Reason: Pain/Fever Last Admin: 03/25/19 16:40 Dose: 650 mg Amlodipine Besylate (Norvasc) 5 mg PO BID [facility] Aspirin (Halfprin) 81 mg PO DAILY [facility] Calcium Carbonate/Glycine (Tums) 1,000 mg PO DAILY [facility] Cyanocobalamin (Vitamin B12) 250 mcg PO DAILY [facility] Enoxaparin Sodium (Lovenox) 40 mg SUBCUT Q24H [facility] Last Admin: 03/25/19 16:19 Dose: 40 mg Potassium Chloride (Klor-Con 10) 10 meq PO DAILY [facility] Simvastatin (Zocor) 20 mg PO DAILY [facility] Sodium Chloride (Saline Flush) 10 ml FLUSH ASDIRECTED PRN PRN Reason: Keep Vein Open Labs: Laboratory Tests 03/25/19 03/25/19 03/25/19 Range/Units 11:15 11:15 11:15 WBC 8.9 (5.0-10.0) 10^3/uL RBC 5.66 (4.50-6.00) 10^6/uL Hgb 17.4 (14.0-18.0) g/dL Hct 48.7 (40.0-54.0) % MCV 86.0 (82.0-94.0) fL MCH 30.7 (27.0-32.0) pg MCHC 35.7 (33.0-38.0) g/dL RDW Coeff of Sabino 13.0 (11.0-15.0) % Plt Count 226 (150-400) 10^3/uL Neut % (Auto) 68.1 (35-85) % Lymph % (Auto) 19.3 (10-55) % Glasscock % (Auto) 11.6 (0-16) % Eos % (Auto) 0.5 (0-5) % Baso % (Auto) 0.5 (0-3) % Neut # (Auto) 6.03 (1.80-7.00) 10^3/uL Lymph # (Auto) 1.71 (1.00-4.80) 10^3/uL [place] # (Auto) 1.03 H (0.00-0.80) 10^3/uL Eos # (Auto) 0.04 (0.00-0.45) 10^3/uL Baso # (Auto) 0.04 10^3/uL PT 10.7 (9.7-12.3) SEC INR 1.04 (0.92-1.18) APTT 25.4 (23.2-32.3) SEC Sodium 136 (136-145) mEq/L Potassium 3.8 (3.5-5.0) mEq/L Chloride 98 (98-106) mEq/L Carbon Dioxide 28 (21-32) mmol/L BUN 15 (7-18) mg/dL Creatinine 1.3 (0.7-1.3) mg/dL Est Cr Clr Drug Dosing 40.25 mL/min Estimated GFR (MDRD) 53 L (>=60) mL/min Glucose 111 H (75-99) mg/dL Calcium 9.2 (8.4-10.1) mg/dL Lactate Dehydrogenase 97 L (100-190) U/L Creatine Kinase 82 (35-232) U/L Troponin I < 0.017 (0.00-0.06) ng/mL Meds: Medications Generic Name Dose Route Start Last Admin Trade Name Freq PRN Reason Stop Dose Admin Acetaminophen 650 mg 03/25/19 16:06 03/25/19 16:40 Tylenol PO 650 mg Q6H PRN Administration Pain/Fever Amlodipine Besylate 5 mg 03/25/19 20:00 Norvasc PO BID [facility] Aspirin 81 mg 03/26/19 08:00 Halfprin PO DAILY [facility] Calcium Carbonate/Glycine 1,000 mg 03/26/19 08:00 Tums PO DAILY [facility] Cyanocobalamin 250 mcg 03/26/19 08:00 Vitamin B12 PO DAILY [facility] Enoxaparin Sodium 40 mg 03/25/19 16:00 03/25/19 16:19 Lovenox SUBCUT 40 mg Q24H [facility] Administration Potassium Chloride 10 meq 03/26/19 08:00 Klor-Con 10 PO DAILY [facility] Simvastatin 20 mg 03/26/19 08:00 Zocor PO DAILY [facility] Sodium Chloride 10 ml 03/25/19 13:38 Saline Flush FLUSH ASDIRECTED PRN Keep Vein Open Discontinued Medications Generic Name Dose Route Start Last Admin Trade Name Freq PRN Reason Stop Dose Admin Non-Formulary Medication 100 mg 03/26/19 08:00 Ubidecarenone [Co Q-10] PO DAILY [facility] Departure - Departure Time of Disposition: 14:25 Disposition: Refer to Observation Clinical Impression: Weakness, Dizziness, nonspecific, Ventricular trigeminy - Discharge Information - Problem List & Annotations (1) Weakness SNOMED Code(s): 49789062 Code(s): R53.1 - WEAKNESS Status: Acute Current Visit: Yes (2) Dizziness, nonspecific SNOMED Code(s): 694718854, 407846874 Code(s): R42 - DIZZINESS AND GIDDINESS Status: Acute Current Visit: Yes (3) Ventricular trigeminy SNOMED Code(s): 545908288 Code(s): I49.8 - OTHER SPECIFIED CARDIAC ARRHYTHMIAS Status: Acute Current Visit: Yes - Assessment/Plan Admission H&P: Please use this note as an admission H&P Plan: Consulted with Dr. Renteria in regards to [place]'s condition. Will admit to Dr. Renteria 's services under observation. Will hold beta blossom and increase his Amlodipine to 5mg twice a day. Patient to be on continuous telemetry. Will ambulate with assistance from staff.
[2019-03-25] MEDS ORDERED: amLODIPine 2.5 MG Tab PO SCH (20:00)
[2019-03-26] MEDS ORDERED: Simvastatin 20 MG Tab PO SCH (08:00)
[2019-03-26] MEDS ORDERED: Non-Formulary Medication 1 Each (Ubidecarenone [Co Q-10] 100 MG) PO SCH (08:00)
[2019-03-26] MEDS ORDERED: Cyanocobalamin (Vitamin B12) 100 MCG Tab PO SCH (08:00)
[2019-03-26] MEDS ORDERED: Calcium Carbonate 500 MG Tab.Chew PO SCH (08:00)
[2019-03-26] MEDS ORDERED: POTASSIUM CL 10 MEQ PO SCH (08:00)
[2019-03-26] MEDS ORDERED: AMLODIPINE 5 MG PO SCH (08:00)
[2019-03-26] MEDS ORDERED: Simvastatin 20 MG Tab **OWN MED PO SCH (08:00)
[2019-03-26] MEDS ORDERED: Potassium Chloride 10 MEQ Tab.ER PO SCH (08:00)
[2019-03-26] MEDS ORDERED: Aspirin 81 MG Tab.EC PO SCH (08:00)
[2019-03-26 12:54] VITALS: BP 119/58; PULSE 87
--- NOTE | 2019-03-26 13:10 | PCM.DCSUM1 ---
Discharge Summary - Hospital Course Free Text/Narrative:: dizziness and [place] HPI Initial Comments: see the pts H/P for details Diagnosis: Stroke: No Modified Pebbles Scale: No Symptoms at All Modified Dimmit Scale Score: 0 - Discharge Data Discharge Date: 03/26/19 Discharge Disposition: Home, Self-Care 01 Condition: Fair - Referral to Home Health Primary Care Physician: PCP Unknown - Discharge Diagnosis/Problem(s) (1) Dizziness, nonspecific SNOMED Code(s): 957650826, 888286931 ICD Code: R42 - DIZZINESS AND GIDDINESS Status: Acute Current Visit: Yes - Patient Summary/Data Consults: Consultations 03/25/19 13:38 PT Evaluation and Treatment [CONS] Routine Hospital Course: the pt was evaluated in the ED, his atenolol was held, MRI brain completed and does not show anything acute, carotid US does not show any significant stenosis , see both reports for detail, this morning has no weakness, no dizziness, advised he feels fine, is ambulating in the tobar without any problems - Patient Instructions Diet: Heart Healthy Diet Activity: As Tolerated Driving: Do Not Drive Showering/Bathing: May Shower Notify Provider of: Fever, Nausea and/or Vomiting - Discharge Plan *PRESCRIPTION DRUG MONITORING PROGRAM REVIEWED*: Not Applicable *COPY OF PRESCRIPTION DRUG MONITORING REPORT IN PATIENT JEROD: Not Applicable Home Medications: Home Meds Aspirin [Halfprin] 81 mg PO DAILY 12/09/13 [History] Calcium Carbonate [Calcium] 1,200 mg PO DAILY 12/09/13 [History] Cholecalciferol (Vitamin D3) [Vitamin D3] 2,000 unit PO DAILY 12/09/13 [History] Simvastatin [Zocor] 20 mg PO DAILY 12/09/13 [History] Ubidecarenone [Co Q-10] 100 mg PO DAILY 12/09/13 [History] Potassium Chloride 10 meq PO DAILY 03/11/19 [History] amLODIPine Besylate [Amlodipine Besylate] 5 mg PO DAILY 03/11/19 [History] Cyanocobalamin (Vitamin B-12) [Vitamin B12] 1 tab PO DAILY 03/26/19 [History] Cyanocobalamin (Vitamin B12) [Vitamin B12] 250 mcg PO DAILY tablet 03/26/19 [Rx ] Oxygen Therapy Mode: Room Air Forms: ED Department Discharge Referrals: PCP,Unknown [Primary Care Provider] - - Discharge Summary/Plan Comment DC Time >30 min.: No Discharge Summary/Plan Comment: will dc home, continue to hold atenolol, f/u with Dr. Renteria this week, discussing possible dc atenolol and return to ER sooner if worse or problems - Patient Data Vitals - Most Recent: Last Vital Signs Temp 36.4 C 03/26/19 12:00 Pulse 87 03/26/19 12:00 Resp 18 03/26/19 12:00 BP 119/58 L 03/26/19 12:00 Pulse Ox 98 03/26/19 12:00 Weight - Most Recent: 74.979 kg Lab Results - Last 24 hrs: Laboratory Results - last 24 hr 03/26/19 Range/Units 07:30 Sodium 138 (136-145) mEq/L Potassium 3.7 (3.5-5.0) mEq/L Chloride 101 (98-106) mEq/L Carbon Dioxide 31 (21-32) mmol/L BUN 12 (7-18) mg/dL Creatinine 1.2 (0.7-1.3) mg/dL Est Cr Clr Drug Dosing 43.61 mL/min Estimated GFR (MDRD) 58 L (>=60) mL/min Glucose 102 H (75-99) mg/dL Calcium 8.8 (8.4-10.1) mg/dL Magnesium 1.8 (1.8-2.4) mg/dL Med Orders - Current: Current Medications Acetaminophen (Tylenol) 650 mg PO Q6H PRN PRN Reason: Pain/Fever Last Admin: 03/25/19 16:40 Dose: 650 mg Aspirin (Halfprin) 81 mg PO DAILY [facility] Last Admin: 03/26/19 08:00 Dose: 81 mg Calcium Carbonate/Glycine (Tums) 1,000 mg PO DAILY [facility] Last Admin: 03/26/19 07:59 Dose: 1,000 mg Cyanocobalamin (Vitamin B12) 250 mcg PO DAILY [facility] Last Admin: 03/26/19 08:01 Dose: Not Given Enoxaparin Sodium (Lovenox) 40 mg SUBCUT Q24H [facility] Last Admin: 03/25/19 16:19 Dose: 40 mg Amlodipine 5mg Tab (Own Med) 0 each PO BID [facility] Last Admin: 03/26/19 08:01 Dose: 1 each Potassium Chloride (Klor-Con 10) 10 meq PO DAILY [facility] Last Admin: 03/26/19 08:00 Dose: 10 meq Simvastatin (Zocor) 20 mg PO DAILY [facility] Last Admin: 03/26/19 08:01 Dose: 20 mg Sodium Chloride (Saline Flush) 10 ml FLUSH ASDIRECTED PRN PRN Reason: Keep Vein Open Discontinued Medications Amlodipine Besylate (Norvasc) 5 mg PO BID [facility] Last Admin: 03/25/19 19:32 Dose: 5 mg Non-Formulary Medication (Ubidecarenone [Co Q-10]) 100 mg PO DAILY [facility] Potassium Chloride (Klor-Con 10) 10 meq PO DAILY [facility] Simvastatin (Zocor) 20 mg PO DAILY [facility]
== END 2019-03-26 14:15 | disposition home or self-care (01) ==
LOC: CC.ED 10:55 → CC.MS 12:48 → UNDOADMOB 12:48 → CC.MS 12:56
PROVIDERS: ADMIT Physician Assistant Medical; ATTEND Family Medicine
DX: R42 Dizziness and giddiness (principal); R53.1 Weakness; I49.8 Other specified cardiac arrhythmias; I10 Essential (primary) hypertension; Z79.82 Long term (current) use of aspirin; Z79.899 Other long term (current) drug therapy; Z88.6 Allergy status to analgesic agent; Z88.0 Allergy status to penicillin; Z88.8 Allergy status to other drugs, medicaments and biological substances
CPT/HCPCS: 36415; 80048; 82550; 83615; 83735; 84484; 85025; 85610; 85730; 93005; 96372; 99285-25; A9270-GY; G0378; J1650

== ENCOUNTER 2020-07-10 07:35 | Emergency (ER) | payer MEDICARE, BC ==
[2020-07-10 07:45] VITALS: PULSE 93
[2020-07-10 08:17] VITALS: BP 137/90
--- NOTE | 2020-07-10 08:21 | EDM.PDOC ---
ED HPI GENERAL MEDICAL PROBLEM - General Chief Complaint: General Stated Complaint: "high blood pressure" Time Seen by Provider: 07/10/20 07:55 Source of Information: Reports: Patient History Limitations: Reports: No Limitations - History of Present Illness INITIAL COMMENTS - FREE TEXT/NARRATIVE: Deshaun is an 84 yo male who presents to the ED with concerns of high blood pressure. States he has chronic headaches but yesterday it seemed to be a lot worse. Admits this morning he checked his blood pressure and it was 170 systolic. About 40 yrs ago he states he was on the verge of having a stroke and was admitted to the hospital for high blood pressure. Patient checks his blood pressure regularly at home with a wrist cuff and usually it is 130's. Headache has mostly subsided from yesterday. Overall is feeling his normal self. Denies any neurological deficits. No unilateral weakness. No difficulty with speech. Denies any chest pain, shortness of breath. Review of systems is otherwise grossly benign. Duration: Improving - Related Data Allergies Allergy/AdvReac Type Severity Reaction Status Date / Time acetaminophen Allergy Cannot Verified 07/10/20 07:41 [From Tylenol-Codeine #3] Remember amoxicillin [Amoxicillin] Allergy Stomach Verified 07/10/20 07:41 Upset cefuroxime axetil Allergy Joint Pain Verified 07/10/20 07:41 [From Ceftin] codeine phosphate Allergy Cannot Verified 07/10/20 07:41 [From Tylenol-Codeine #3] Remember doxycycline Allergy Dizziness Verified 07/10/20 07:43 levofloxacin [From Levaquin] Allergy Stomach Verified 07/10/20 07:41 Upset Home Meds: Home Meds Aspirin [Halfprin] 81 mg PO DAILY 12/09/13 [History] Calcium Carbonate [Calcium] 1,200 mg PO DAILY 12/09/13 [History] Cholecalciferol (Vitamin D3) [Vitamin D3] 2,000 unit PO DAILY 12/09/13 [History] Simvastatin [Zocor] 20 mg PO DAILY 12/09/13 [History] Ubidecarenone [Co Q-10] 100 mg PO DAILY 12/09/13 [History] Potassium Chloride 10 meq PO DAILY 03/11/19 [History] amLODIPine Besylate [Amlodipine Besylate] 5 mg PO DAILY 03/11/19 [History] Cyanocobalamin (Vitamin B12) [Vitamin B12] 250 mcg PO DAILY tablet 03/26/19 [Rx] Past Medical History HEENT History: Reports: Cataract Cardiovascular History: Reports: High Cholesterol, Hypertension Gastrointestinal History: Reports: GERD Genitourinary History: Reports: Prostate Disorder Musculoskeletal History: Reports: Arthritis Neurological History: Reports: Headaches, Chronic Oncologic (Cancer) History: Reports: Prostate - Past Surgical History HEENT Surgical History: Reports: Cataract Surgery Male Surgical History: Reports: Prostatectomy Neurological Surgical History: Reports: Lumbar Spine Social & Family History - Family History Family Medical History: No Pertinent Family History - Tobacco Use Tobacco Use Status *Q: Never Tobacco User - Caffeine Use Caffeine Use: Reports: Coffee - Recreational Drug Use Recreational Drug Use: No ED ROS GENERAL - Review of Systems Review Of Systems: Comprehensive ROS is negative, except as noted in HPI. Constitutional: Reports: No Symptoms. Denies: Fever, Chills, Weakness HEENT: Reports: No Symptoms Respiratory: Denies: Shortness of Breath Cardiovascular: Reports: Blood Pressure Problem. Denies: Chest Pain, Edema, Lightheadedness, Palpitations GI/Abdominal: Reports: No Symptoms. Denies: Abdominal Pain, Constipation, Diarrhea, Nausea, Vomiting : Reports: No Symptoms Musculoskeletal: Reports: Neck Pain (chronic), Joint Pain (chronic bilateral ankles, wrist) Skin: Reports: No Symptoms Neurological: Reports: Headache (chronic, better today than yesterday) Psychiatric: Reports: No Symptoms ED EXAM, GENERAL - Physical Exam Exam: See Below Exam Limited By: No Limitations General Appearance: Alert, No Apparent Distress Eye Exam: Bilateral Eye: EOMI, Normal Inspection, PERRL Ears: Normal External Exam, Hearing Grossly Normal Nose: Normal Inspection, Normal Mucosa, No Blood Throat/Mouth: Normal Inspection, Normal Lips, Normal Oropharynx, Normal Voice, No Airway Compromise Head: Atraumatic, Normocephalic Neck: Normal Inspection, Supple. No: Carotid Bruit Respiratory/Chest: No Respiratory Distress, Lungs Clear, Normal Breath Sounds, No Accessory Muscle Use Cardiovascular: Normal Peripheral Pulses, Regular Rate, Rhythm, No Edema, No Murmur GI/Abdominal: Normal Bowel Sounds, Soft, Non-Tender, No Distention Extremities: Normal Inspection, No Pedal Edema Neurological: Alert, Oriented, CN II-XII Intact, Normal Cognition, No Motor/Sensory Deficits. No: Inattentive, Confused, Slow to Respond, Unresponsive, Memory Loss Remote Events, Memory Loss Recent Events, Sensory/Motor Deficit Psychiatric: Normal Affect, Normal Mood Skin Exam: Warm, Dry, Intact, Normal Color, No Rash #1 Interpretation EKG Date: 07/10/20 Time: 07:55 Rhythm: NSR Comparison: No Change Course - Vital Signs Last Recorded V/S: Last Vital Signs Temp 98 F 07/10/20 07:43 Pulse 93 07/10/20 07:43 Resp 16 07/10/20 07:43 BP 137/90 07/10/20 08:16 Pulse Ox 95 07/10/20 07:43 - Orders/Labs/Meds Labs: Laboratory Tests 07/10/20 07/10/20 Range/Units 07:48 07:48 WBC 7.6 (5.0-10.0) 10^3/uL RBC 5.67 (4.50-6.00) 10^6/uL Hgb 16.7 (14.0-18.0) g/dL Hct 48.6 (40.0-54.0) % MCV 85.7 (82.0-94.0) fL MCH 29.5 (27.0-32.0) pg MCHC 34.4 (33.0-38.0) g/dL RDW Coeff of Sabino 13.4 (11.0-15.0) % Plt Count 212 (150-400) 10^3/uL Neut % (Auto) 63.4 (35-85) % Lymph % (Auto) 24.3 (10-55) % [place] % (Auto) 8.8 (0-16) % Eos % (Auto) 2.5 (0-5) % Baso % (Auto) 1.0 (0-3) % Neut # (Auto) 4.84 (1.80-7.00) 10^3/uL Lymph # (Auto) 1.86 (1.00-4.80) 10^3/uL [place] # (Auto) 0.67 (0.00-0.80) 10^3/uL Eos # (Auto) 0.19 (0.00-0.45) 10^3/uL Baso # (Auto) 0.08 10^3/uL Sodium 141 (136-145) mEq/L Potassium 3.3 L (3.5-5.0) mEq/L Chloride 104 (98-106) mEq/L Carbon Dioxide 28 (21-32) mmol/L BUN 12 (7-18) mg/dL Creatinine 1.1 (0.7-1.3) mg/dL Est Cr Clr Drug Dosing 48.36 mL/min Estimated GFR (MDRD) > 60 (>=60) mL/min Glucose 106 H (75-99) mg/dL Calcium 9.1 (8.4-10.1) mg/dL Total Bilirubin 1.0 (0.0-1.0) mg/dL AST 16 (15-37) U/L ALT 19 (12-78) U/L Alkaline Phosphatase 97 (46-116) U/L Creatine Kinase 99 (35-232) U/L Troponin I < 0.017 (0.00-0.06) ng/mL Total Protein 7.5 (6.4-8.2) g/dL Albumin 3.8 (3.4-5.0) g/dL Departure - Departure Time of Disposition: 08:37 Disposition: Home, Self-Care 01 Clinical Impression: History of high blood pressure - Discharge Information Instructions: Hypertension, Adult, [id number] Referrals: PCP,Unknown [Primary Care Provider] - Forms: ED Department Discharge Additional Instructions: 1) Continue taking 5mg of Amlodipine daily 2) Refrain from excessive use of caffeine 3) Continue taking Simvastatin as directed as well 4) Labs were excellent today beside Potassium being slightly low. Recommend taking your Potassium daily 5) Schedule physical with Dr. Renteria next week 5) If blood pressure happens to elevate again or have any concerns at all, return to ED. Sepsis Event Note (ED) - Evaluation Sepsis Screening Result: No Definite Risk - Focused Exam Vital Signs: Vital Signs Temp Pulse Resp BP Pulse Ox 07/10/20 08:16 137/90 07/10/20 07:43 98 F 93 16 136/78 95 - Problem List & Annotations (1) History of high blood pressure SNOMED Code(s): 592417055 Code(s): Z86.79 - PERSONAL HISTORY OF OTHER DISEASES OF THE CIRCULATORY SYSTEM Status: Acute Current Visit: Yes - Problem List Review Problem List Initiated/Reviewed/Updated: Yes - Assessment/Plan Plan: Physical exam was unremarkable today. Patient appears to be doing well and currently asymptomatic. EKG showed normal sinus rhythm. Patient's labs are stable this morning. Deshaun is due for yearly physical next week. In review of patient's clinic chart, Carotid duplex completed fall 2018 with less than 50% bilateral stenosis of the ICA's. Will discharge at this time in satisfactory condition. Advised patient to continue with current medications. If he starts to have any symptoms again or any concerns at all, recommend returning to the ED.
[2020-07-10 08:30] LABS: CHLORIDE,CL 104 mEq/L (98-106); SODIUM,NA 141 mEq/L (136-145)
== END 2020-07-10 08:49 | disposition home or self-care (01) ==
LOC: CC.ED 07:35
DX: I10 Essential (primary) hypertension (principal); E78.00 Pure hypercholesterolemia, unspecified; M19.90 Unspecified osteoarthritis, unspecified site; Z79.82 Long term (current) use of aspirin; Z79.899 Other long term (current) drug therapy; Z88.6 Allergy status to analgesic agent; Z88.0 Allergy status to penicillin; Z88.1 Allergy status to other antibiotic agents; Z88.5 Allergy status to narcotic agent
CPT/HCPCS: 36415; 80053; 82550; 84484; 85025; 93005; 93010; 99283-25; 99284

== ENCOUNTER 2022-07-14 21:01 | Emergency (ER) | payer MEDICARE, BC ==
[2022-07-14 21:12] VITALS: PULSE 87
[2022-07-14 21:56] LABS: CORONAVIRUS COVID-19 NAA NEGATIVE (NEGATIVE); RESPIRATORY SYNCYTIAL VIR NAA POSITIVE (NEGATIVE)
[2022-07-14 22:19] VITALS: BP 146/88
== END 2022-07-14 22:19 | disposition home or self-care (01) ==
LOC: CC.ED 21:01
DX: J06.9 Acute upper respiratory infection, unspecified (principal); B97.4 Respiratory syncytial virus as the cause of diseases classified elsewhere; I10 Essential (primary) hypertension; Z88.0 Allergy status to penicillin; Z88.1 Allergy status to other antibiotic agents; Z79.82 Long term (current) use of aspirin; Z79.899 Other long term (current) drug therapy; Z20.822 Contact with and (suspected) exposure to COVID-19
CPT/HCPCS: 0241U; 36415; 71046; 80053; 83735; 83880; 84484; 85025; 93010; 99284; 99285

== ENCOUNTER 2023-08-07 10:02 | Day surgery (SDC) | payer MEDICARE, BC ==
[2023-08-07] MEDS: Lactated Ringers 1,000 ML IV SCH (10:29)
[2023-08-07] MEDS ORDERED: fentaNYL 50 MCG/ML SDV ONE (10:52)
[2023-08-07] MEDS ORDERED: Propofol 200 MG/20 ML SDV ONE (10:52)
[2023-08-07] MEDS ORDERED: Lidocaine 2% 20 ML MDV ONE (10:52)
[2023-08-07] MEDS ORDERED: Ketamine 200 MG/20 ML MDV ONE (10:52)
[2023-08-07 12:54] VITALS: BP 160/68; PULSE 58
== END 2023-08-07 12:30 | disposition home or self-care (01) ==
LOC: CC.SDS 10:02
PROVIDERS: ATTEND Family Medicine
DX: K29.50 Unspecified chronic gastritis without bleeding (principal); K22.2 Esophageal obstruction; K44.9 Diaphragmatic hernia without obstruction or gangrene; K21.9 Gastro-esophageal reflux disease without esophagitis; E78.00 Pure hypercholesterolemia, unspecified; Z79.899 Other long term (current) drug therapy; Z72.0 Tobacco use; Z88.0 Allergy status to penicillin; Z88.6 Allergy status to analgesic agent; Z88.1 Allergy status to other antibiotic agents; Z88.8 Allergy status to other drugs, medicaments and biological substances
CPT/HCPCS: 43239; 43249; 87081; J2704; J3010; J7120; 00731; 88305; 99100; J3490

== ENCOUNTER 2023-09-27 08:00 | Emergency (ER) | payer MEDICARE, BC ==
[2023-09-27 08:15] LABS: BASOPHILS ABSOLUTE AUTO 0.06 10^3/uL (0.00-0.50); BASOPHILS PERCENT AUTO 1.1 % (0-1); EOSINOPHILS ABSOLUTE AUTO 0.25 10^3/uL (0.00-1.50); EOSINOPHILS PERCENT AUTO 4.6 % (0-6); HEMATOCRIT 43.7 % (42.0-52.0); HEMOGLOBIN 14.5 g/dL (14.0-18.0); IMMATURE GRAN ABSOLUTE AUTO 0.01 10^3/uL (0.00-0.49); IMMATURE GRAN PERCENT AUTO 0.2 % (0.0-4.9); LYMPHOCYTES ABSOLUTE AUTO 1.67 10^3/uL (0.60-5.00); LYMPHOCYTES PERCENT AUTO 30.6 % (24-44); MEAN CORPUSCULAR HEMOGLOBIN 28.3 pg (27.0-32.0); MEAN CORPUSCULAR HGB CONC 33.2 g/dL (32.0-36.0); MEAN CORPUSCULAR VOLUME 85.4 fL (83.0-97.0); NEUTROPHILS ABSOLUTE AUTO 2.87 x10^3/uL (1.80-8.00); NEUTROPHILS PERCENT AUTO 52.5 % (41-71); PLATELET COUNT,PLT 223 10^3/uL (150-400); RED BLOOD CELL COUNT 5.12 x10^6/uL (4.50-6.00); WHITE BLOOD CELL COUNT,WBC 5.5 10^3/uL (4.0-11.0)
[2023-09-27 08:34] LABS: ALBUMIN 3.7 g/dL (3.4-5.0); BILIRUBIN TOTAL 0.8 mg/dL (0.0-1.0); CALCIUM 8.6 mg/dL (8.4-10.1); EST CRCL DRUG DOSING (CG) 46.96 mL/min; MAGNESIUM 2.2 mg/dL (1.8-2.4); POTASSIUM,K 3.8 mEq/L (3.5-5.0); PROTEIN TOTAL,TP 7.1 g/dL (6.4-8.2)
[2023-09-27 08:51] LABS: APPEARANCE,URINE CLEAR (CLEAR); BILIRUBIN,URINE NEGATIVE (NEGATIVE); COLOR,URINE LIGHT YELLOW (YELLOW); GLUCOSE,URINE NEGATIVE (NEGATIVE); KETONES,URINE NEGATIVE (NEGATIVE); LEUKOCYTE ESTERASE,URINE NEGATIVE (NEGATIVE); NITRITE,URINE NEGATIVE (NEGATIVE); OCCULT BLOOD,URINE NEGATIVE (NEGATIVE); PH,URINE 7.5 (4.5-8.0); PROTEIN,URINE NEGATIVE (NEGATIVE); UROBILINOGEN,URINE 0.2 EU/dL (0.2-1.0)
[2023-09-27] MEDS: amLODIPine 2.5 MG Tab PO ONE (09:06)
[2023-09-27] MEDS: Sodium Chloride 0.9% 1,000 ML IV ONE (10:42)
[2023-09-27 13:50] VITALS: BP 153/71; PULSE 92
== END 2023-09-27 14:53 | disposition home or self-care (01) ==
LOC: CC.ED 08:00
DX: R42 Dizziness and giddiness (principal); I95.1 Orthostatic hypotension; I10 Essential (primary) hypertension; K21.9 Gastro-esophageal reflux disease without esophagitis; M19.90 Unspecified osteoarthritis, unspecified site; Z88.0 Allergy status to penicillin; Z88.8 Allergy status to other drugs, medicaments and biological substances; Z79.82 Long term (current) use of aspirin; Z79.899 Other long term (current) drug therapy
CPT/HCPCS: 36415; 70450; 72125; 80053; 81003; 83735; 83880; 84484; 85025; 93005; 93010; 99284; 99285; A9270-GY; J7030

== ENCOUNTER 2024-12-28 13:30 | Emergency (ER) | payer MEDICARE, BC ==
[2024-12-28] MEDS: Ketorolac 30 MG/ML SDV IM ONE (14:01)
[2024-12-28] MEDS: Orphenadrine 60 MG/2 ML Inj IM ONE (14:03)
[2024-12-28 14:58] VITALS: BP 155/71; PULSE 61
== END 2024-12-28 14:50 | disposition home or self-care (01) ==
LOC: CC.ED 13:30
DX: M54.50 Low back pain, unspecified (principal); I10 Essential (primary) hypertension; Z88.0 Allergy status to penicillin; Z88.5 Allergy status to narcotic agent; Z79.82 Long term (current) use of aspirin; Z79.899 Other long term (current) drug therapy
CPT/HCPCS: 96372; 99283; J1885; J2360